=== PATIENT | male | born 1955 | race Caucasian/White ===

== ENCOUNTER 2023-11-01 06:55 | Day surgery (SDC) | payer MEDICARE, OTHER ==
[2023-11-01] MEDS: Lactated Ringers 1,000 ML IV SCH (07:26)
[2023-11-01] MEDS ORDERED: fentaNYL 50 MCG/ML SDV ONE (07:37)
[2023-11-01] MEDS ORDERED: Propofol 200 MG/20 ML SDV ONE (07:37)
[2023-11-01] MEDS ORDERED: Midazolam 1 MG/ML 2 ML SDV ONE (07:37)
== END 2023-11-01 09:25 | disposition home or self-care (01) ==
LOC: JP.SDS 06:55
PROVIDERS: ATTEND Family Medicine
DX: Z12.11 Encounter for screening for malignant neoplasm of colon (principal); D12.0 Benign neoplasm of cecum; Z86.010 Personal history of colon polyps; I10 Essential (primary) hypertension; J44.9 Chronic obstructive pulmonary disease, unspecified; E78.5 Hyperlipidemia, unspecified
CPT/HCPCS: 00811; 45380; 88305; J2250; J2704; J3010; J7120